=== PATIENT | female | born 1980 | race Two or more races ===

== ENCOUNTER 2020-09-03 18:09 | Emergency (ER) | payer OTHER ==
[~2020-09-03] VITALS: Ht 162.6 cm; Wt 90.7 kg
[2020-09-03] MEDS ORDERED: DOLOGEN CAPLET1 EACH PO (21:04)
== END 2020-09-03 21:27 | disposition home or self-care (01) ==
LOC: ER 18:09
DX: B34.9 Viral infection, unspecified (principal); Z03.818 Encounter for observation for suspected exposure to other biological agents ruled out